=== PATIENT | male | born 1960 | race Caucasian/White ===

== ENCOUNTER 2019-05-15 13:17 | Emergency (ER) | payer OTHER ==
[2019-05-15] MEDS: 0.9 % SODIUM CHLORIDE 1,000 ML IV ONE (13:20)
[2019-05-15] MEDS: MORPHINE SULFATE 10 MG/ML VIAL IV ONE (13:30)
[2019-05-15] MEDS: MORPHINE SULFATE 10 MG/ML VIAL ONE (13:34)
[2019-05-15 13:40] LABS: SEGMENTED NEUTROPHILS % 68 % (39-79)
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
[2019-05-15 13:41] LABS: eGFR (Non-African) > 60
[2019-05-15] MEDS: HYDROmorphone HCL/PF 1 MG/ML VIAL ONE (13:52)
[2019-05-15] MEDS: HYDROmorphone HCL/PF 1 MG/ML VIAL IVP ONE (13:52)
[2019-05-15] MEDS: LACTATED RINGERS 1,000 ML IV ONE ×2 (13:58)
[2019-05-15 14:14] VITALS: BP 143/87
== END 2019-05-15 14:03 | disposition short-term general hospital (02) ==
LOC: ED 13:17
DX: T22.331A Burn of third degree of right upper arm, initial encounter (principal); T20.34XA Burn of third degree of nose (septum), initial encounter; T21.31XA Burn of third degree of chest wall, initial encounter; T31.40 Burns involving 40-49% of body surface with 0% to 9% third degree burns
CPT/HCPCS: 80053; 85025; 96361; 96374; 96375; 99282; 99284; J1170; J2270; J7030; J7120; S1016